=== PATIENT | female | born 1990 | race Hispanic/Latino ===

== ENCOUNTER 2022-03-17 15:01 | Inpatient (IN) | payer OTHER ==
[2022-03-17] MEDS ORDERED: BUTORPHANOL 1 MG/ML INJ IV PRN (15:15)
[2022-03-17] MEDS ORDERED: CARBOPROST TROME 250 MCG/ML IM PRN (15:15)
[2022-03-17] MEDS ORDERED: METHYLERGONOVINE 0.2MG/ML AMP IM PRN (15:15)
[2022-03-17] MEDS ORDERED: Ringers Lactate 1,000 ML IV PRN (15:15)
[2022-03-17] MEDS ORDERED: PROMETHAZINE INJ 25 MG/ML AMP IM PRN (15:15)
[2022-03-17] MEDS ORDERED: OXYTOCIN/LR 20 UNIT/1,000 ML BAG IV ONE (15:26)
[2022-03-17] MEDS ORDERED: CARBOPROST TROME 250 MCG/ML IM ONE (15:26)
[2022-03-17] MEDS ORDERED: LIDOCAINE 1% MPF 30 ML VIAL ONE (15:26)
[2022-03-17] MEDS ORDERED: METHYLERGONOVINE 0.2MG/ML AMP IM ONE (15:26)
[2022-03-17 15:53] VITALS: BMI 40.6
[2022-03-17] MEDS ORDERED: Ringers Lactate 1,000 ML IV SCH (16:00)
[2022-03-17] MEDS ORDERED: OXYTOCIN/LR 20 UNIT/1,000 ML BAG IV SCH ×2 (16:00→18:00)
[2022-03-17 16:09] LABS: Specific Gravity 1.015 (1.005-1.030); Urine Bilirubin Negative (Negative); Urine Blood Trace-lysed (Negative); Urine Clarity Clear (Clear); Urine Color Yellow (Yellow); Urine Glucose Negative (Negative); Urine Protein Negative (Negative); Urine Urobilinogen 0.2 mg/dL (0.2-1.0)
[2022-03-17 16:10] LABS: Absolute Lymphocytes (CBC) 1.3 K/uL (0.7-4.9); Hematocrit 34.8 % (36.0-45.0); MCV 83.1 fL (80-100); MPV 9.9 fL (7.6-11.3); RBC Red Blood Cell Count 4.19 M/uL (3.86-4.86)
[2022-03-17 16:20] LABS: SARS-CoV-2 Antigen Rapid Res Positive (Negative)
[2022-03-17 17:06] LABS: Urine Bacteria <20 /HPF (<20); Urine RBC <5 /HPF (None Seen)
[2022-03-17] MEDS ORDERED: DOCUSATE NA/SENNA CONC 1 TAB PO PRN (17:37)
[2022-03-17] MEDS ORDERED: ACETAMINOPHEN 500 MG TAB PO PRN (17:37)
[2022-03-17] MEDS ORDERED: BISACODYL 10 MG RECTAL SUPP PR PRN (17:37)
[2022-03-17] MEDS ORDERED: Oxycodone HCl/Acetaminophen 1 TAB TAB PO PRN ×2 (17:37)
[2022-03-17] MEDS ORDERED: DIPHENHYDRAMINE 25 MG TAB/CAP PO PRN (17:37)
[2022-03-17] MEDS ORDERED: Rho(D) IG (HUMAN) 300 MCG SYR IM ONE (18:09)
--- NOTE | 2022-03-17 19:52 | PREOPHP ---
Date of Admission: 03/17/2022 History Of Present Illness: A 31-year-old female, 5, para 4, 38 weeks and 1 day, ca me in active labor 4 cm on admission, reema regularly. FHTs normal, reactive. Vital signs are all stable. She is now 6 cm, still somewhat posterior, rupture of membranes, clear fluid. Cervix i s very stretchy and I think she has some good firm contractions. We have a baby. She is strep negat gray, O negative, has received RhoGAM during the and course will qualify her prior to dismis shree. She has been anemic during her from the inception and has been on iron. Immune to ru casimiro is 6. Family History: Maternal grandfather with hypertension. Maternal grandfather also with stroke. Mot her with diabetes. Both grandparents, apparently on both sides with diabetes. No serious medical illnesses. No previous surgeries. Allergies: NO ALLERGIES. Medications: vitamins prior to admission. Social History: Does not smoke. Physical Examination: HEENT: Clear. Pupils equal, round, reactive to light and accommodation. Conjunctivae well perfused . No oral, lingual, buccal lesions. chest and Lungs: Clear. Heart: Without murmurs, thrills, heaves, or rubs. Breasts: Not examined today, but on previous visits without masses. Extremities: Clear without edema, cyanosis, or clubbing. Pelvic: As stated approximately 6 cm, 80% effaced, -1 station well applied. Clear fluid. Assessment/plan: We will start light Pitocin augmentation and anticipate delivery relatively soon. DHAVAL/SANG Voice ID: [id number]
[2022-03-17] MEDS: IBUPROFEN 200 MG TAB PO PRN (20:00)
[2022-03-18] MEDS: IBUPROFEN 200 MG TAB PO PRN (04:46)
[2022-03-18] MEDS ORDERED: IBUPROFEN 600 MG TAB PO PRN (09:53)
--- NOTE | 2022-03-18 14:19 | DS ---
Hospital Course: A 31-year-old, 5, para 4, 38 weeks 1 day, came in active labor. Delivered quickly of a 7-pound 15-ounce female. Apgars 9 and 9. No episiotomy. No laceration. Adam dorsey of the placenta, which was inspected and noted to be intact and normal. 250 cc or less blood lo ss. Positive for COVID, no symptoms. Immune to Rubella. Rh negative. Baby is Rh positive. The pa tient will be given RhoGAM before she leaves. Also advised to get Tdap shot and a flu shot in my off ice early next week for the flu shot. No complaints or problems. Final Diagnoses: Intrauterine gestation, 38 weeks 1 day, spontaneous labor vaginal delivery. RhoGAM pending. Tdap and flu shots offered. COVID positive-asymptomatic. DHAVAL/SANG Voice ID: [id number] Report ID: [id number]
[2022-03-18 18:04] VITALS: BP 110/70; TEMP 97.7
[2022-03-18] MEDS ORDERED: TDAP (DIPHTH,PERTUSS(ACELL),TET VAC) 0.5 ML VIAL IMVAC ONE ×2 (18:05→18:38)
[2022-03-19 02:37] LABS: RPR (Rapid Plasma Reagin) NON-REACT (NON-REACT)
--- NOTE | 2022-03-19 11:43 | OP ---
Surgeon: Frantz Beaver MD Indications: A 31-year-old 5, para 4 at 38 weeks 1 day, came in active labor. Rh negative, received RhoGAM during the . Immune to rubella. Negative strep. Positive COVID, but no sy mptoms whatsoever. Procedure In Detail: She was 4 cm or more on admission and was given light Pitocin augmentation and went to complete second stage of about 15 minutes. Spontaneous vaginal delivery of a 7 pounds 15 oun ce female with Apgars 9 and 9. No episiotomy. No laceration. Schultze delivery of the placenta, wh ich was inspected and noted to be intact and normal. Less than 250 cc blood loss. Patient tolerated all procedures well and went completely natural during her labor. Final Diagnoses: Intrauterine gestation 38 weeks 1 day, vaginal delivery, positive COVID-asymptomati c. Rh negative. RhoGAM pending. DHAVAL/SANG Voice ID: [id number] Report ID: [id number]
[2022-03-23 13:55] LABS: HBsAG Reactive (Nonreactive)
== END 2022-03-18 19:50 | disposition home or self-care (01) | DRG 805 ==
LOC: 2ND-WC 15:01
PROVIDERS: ADMIT Specialist; ATTEND Specialist
PROC: 10E0XZZ Delivery of Products of Conception, External Approach (ICD-10-PCS; principal; 2022-03-17)
PROC: 10907ZC Drainage of Amniotic Fluid, Therapeutic from Products of Conception, Via Natural or Artificial Opening (ICD-10-PCS; 2022-03-17)
PROC: 3E0234Z Introduction of Serum, Toxoid and Vaccine into Muscle, Percutaneous Approach (ICD-10-PCS; 2022-03-17)
DX: O98.52 Other viral diseases complicating childbirth (principal); U07.1 COVID-19; Z37.0 Single live birth; O99.02 Anemia complicating childbirth; D64.9 Anemia, unspecified; Z3A.38 38 weeks gestation of pregnancy
CPT/HCPCS: 36415; 81001; 85025; 85461; 86592; 86850; 86870; 86900; 86901; 87340; 87811; J2210; J2590; J2790; J7120